=== PATIENT | male | born 1935 | race Caucasian/White ===

== ENCOUNTER 2017-11-02 19:39 | Inpatient (IN) | payer MEDICARE ==
[~2017-11-02] VITALS: Ht 165.1 cm; Wt 83.0 kg
[2017-11-02 20:17] LABS: BASOPHILS # (AUTO) 0.1 K/uL (0.0-8.0); BASOPHILS % (AUTO) 0.9 % (0.0-2.0); EOSINOPHILS # (AUTO) 0.1 K/uL (0.0-0.7); EOSINOPHILS % (AUTO) 1.5 % (0.0-7.0); HEMATOCRIT 29.5 % (36.7-47.1); HEMOGLOBIN 9.7 g/dL (12.5-16.3); LYMPHOCYTES # (AUTO) 2.1 K/uL (20.0-40.0); LYMPHOCYTES % (AUTO) 34.1 % (20.5-51.5); MEAN CORPUSCULAR HEMOGLOBIN 27.8 uug (23.8-33.4); MEAN CORPUSCULAR HGB CONC 33 g/dL (32.5-36.3); MEAN CORPUSCULAR VOLUME 84.7 fL (73.0-96.2); MONOCYTES # (AUTO) 0.5 K/uL (2.0-10.0); MONOCYTES % (AUTO) 7.5 % (0.0-11.0); NEUTROPHILS # (AUTO) 3.5 K/uL (1.8-8.9); PLATELET COUNT (AUTO) 155 K/uL (152-348); RED BLOOD CELL COUNT(AUTO) 3.49 MIL/uL (4.06-5.63); WHITE BLOOD COUNT (AUTO) 6.2 K/uL (3.6-10.2)
[2017-11-02] MEDS ORDERED: DONE5TAB7 PO (20:22)
[2017-11-02] MEDS ORDERED: MIRT15TA PO (20:22)
[2017-11-02] MEDS ORDERED: BLOO-360 IN (20:22)
[2017-11-02] MEDS ORDERED: ATOR20TA PO (20:22)
[2017-11-02] MEDS ORDERED: LOSA100T3 PO (20:22)
[2017-11-02] MEDS ORDERED: MULT-213 PO (20:22)
[2017-11-02] MEDS ORDERED: ZOLP5TAB2 PO (20:22)
[2017-11-02] MEDS ORDERED: PANT40TA2 PO (20:22)
[2017-11-02] MEDS ORDERED: TAMS0.4C34 PO (20:22)
[2017-11-02] MEDS ORDERED: ALBU2.5V13 IH (20:22)
[2017-11-02] MEDS ORDERED: GABA300C PO (20:22)
[2017-11-02] MEDS ORDERED: RISP0.253 PO (20:22)
[2017-11-02] MEDS ORDERED: LORA0.5T PO (20:22)
[2017-11-02] MEDS ORDERED: METF500T6 PO (20:22)
[2017-11-02] MEDS ORDERED: HUM10VIA3 SQ (20:22)
[2017-11-02] MEDS ORDERED: ACET-2154 PO (20:22)
[2017-11-02 20:23] LABS: CARBON DIOXIDE 28 mmol/L (21-32); CHLORIDE 104 mmol/L (98-107); CREATININE 1.6 mg/dL (0.6-1.3); GLUCOSE 128 mg/dL (74-106); UREA NITROGEN, BLOOD 32 mg/dL (7-18)
[2017-11-02 20:28] LABS: ACETAMINOPHEN < 2.0 ug/mL (10-30); ALANINE AMINOTRANSFERASE 22 U/L (16-63); ALKALINE PHOSPHATASE 91 U/L (50-136); ASPARTATE AMINOTRANSFERASE 12 U/L (15-37); BILIRUBIN,DIRECT 0.2 mg/dL (0.0-0.2); BILIRUBIN,TOTAL 0.5 mg/dL (0.2-1.0); TOTAL PROTEIN, SERUM 6.8 g/dL (6.4-8.2)
[2017-11-02 20:31] LABS: ETHANOL < 3 MG/DL (0-0)
[2017-11-02] MEDS ORDERED: MAG HYDROX/AL HYDROX/SIMETH 30 ML LIQUID UDC PO PRN (23:15)
[2017-11-02] MEDS ORDERED: ZOLPIDEM 5 MG TABLET PO PRN (23:15)
[2017-11-02] MEDS ORDERED: MAGNESIUM HYDROXIDE 30 ML LIQUID UDC PO PRN (23:15)
[2017-11-02] MEDS ORDERED: TEMAZEPAM 7.5 MG CAPSULE PO PRN (23:15)
[2017-11-02] MEDS ORDERED: ACETAMINOPHEN 650 MG SUPP.RECT RC PRN (23:15)
[2017-11-03] MEDS ORDERED: hydrALAZINE HCL 25 MG TABLET PO PRN
[2017-11-03] MEDS ORDERED: DEXTROSE 50% 50 ML DISP.SYRIN IV PRN
[2017-11-03] MEDS ORDERED: ALBUTEROL SULFATE 2.5 MG/ 0.5 ML NEBU IH PRN
[2017-11-03] MEDS: BLOOD SUGAR DIAGNOSTIC 1 EACH STRIP VI SCH ×4 (07:06→21:38)
[2017-11-03 07:30] VITALS: BP 127/45
[2017-11-03] MEDS ORDERED: BLOOD SUGAR DIAGNOSTIC 1 EACH STRIP VI SCH (07:30)
[2017-11-03] MEDS: PANTOPRAZOLE SODIUM 40 MG TABLET.DR PO SCH (08:48)
[2017-11-03] MEDS: GABAPENTIN 300 MG CAPSULE PO SCH ×2 (08:48→16:59)
[2017-11-03] MEDS: MULTIVIT, IRON, MIN NO. 8, FA TABLET PO SCH (08:50)
[2017-11-03] MEDS ORDERED: AMLODIPINE 5 MG TABLET PO SCH (09:00)
[2017-11-03] MEDS ORDERED: METFORMIN HCL 500 MG TABLET PO SCH (09:00)
[2017-11-03] MEDS: HUM INSULIN NPH/REG INSULIN HM 70/30 1000 UNITS/10 ML VIAL SQ SCH ×2 (09:44→21:37)
[2017-11-03] MEDS: DIVALPROEX SPRINKLE 125 MG CAP.SPRINK PO SCH ×2 (11:43→21:29)
[2017-11-03] MEDS: risperiDONE 0.5 MG TABLET PO SCH ×2 (11:43→21:29)
[2017-11-03] MEDS: LORAZEPAM 1 MG TABLET PO PRN (11:43)
[2017-11-03 15:43] VITALS: BP 117/35
[2017-11-03 20:00] VITALS: BP 107/43
[2017-11-03] MEDS ORDERED: ATORVASTATIN 20 MG TABLET PO SCH (21:00)
[2017-11-03] MEDS ORDERED: TAMSULOSIN HCL 0.4 MG CAP.SR.24H PO SCH (21:00)
[2017-11-03] MEDS: INSULIN REGULAR, HUMAN 300 UNIT/3 ML VIAL SQ PRN (21:00)
[2017-11-03] MEDS: TAMSULOSIN HCL 0.4 MG CAP.SR.24H PO SCH (21:30)
[2017-11-03] MEDS: TEMAZEPAM 7.5 MG CAPSULE PO PRN (23:23)
[2017-11-03 23:24] LABS: *BILIRUBIN,URIN NEGATIVE (NEGATIVE); *BLOOD, URINE 2+ (NEGATIVE); *CLARITY,URINE CLOUDY (CLEAR); *COLOR,URINE YELLOW (YELLOW); *KETONES,URINE NEGATIVE (NEGATIVE); *PROTEIN,URINE NEGATIVE (NEGATIVE); *UROBILINOGEN,URINE 0.2 E.U./dl (NORMAL); LEUKOCYTE ESTERASE ,URINE 3+ (NEGATIVE); NITRITE, URINE NEGATIVE (NEGATIVE); PH,URINE 6.5 (5.0-8.0); UGLUCOSE NEGATIVE (NEGATIVE)
[2017-11-03 23:36] LABS: BACTERIA,URINE MANY /HPF (NONE SEEN); RBC,URINE 20-50 /HPF (0-3); WBC,URINE 80-100 /HPF (0-3)
[2017-11-03 23:37] LABS: *AMPHETAMINE, URINE NEGATIVE (NEGATIVE); *BARBITURATE, URINE NEGATIVE (NEGATIVE); *CANNABINOID, URINE NEGATIVE (NEGATIVE); *COCCAINE, URINE NEGATIVE (NEGATIVE); *OPIATE, URINE NEGATIVE (NEGATIVE); *PHENCYCLIDINE SCREEN,URINE NEGATIVE (NEGATIVE); SQUAMOUS EPITHELIAL CELL,UR FEW /HPF (NONE SEEN); YEAST,URINE FEW /HPF (NONE SEEN)
[2017-11-03 23:52] LABS: *CREATININE,URINE 70.4 mg/dL (30-125)
[2017-11-04] MEDS: LORAZEPAM 1 MG TABLET PO PRN ×2 (00:07→19:38)
[2017-11-04] MEDS: TEMAZEPAM 7.5 MG CAPSULE PO PRN ×2 (00:33→22:35)
[2017-11-04] MEDS: BLOOD SUGAR DIAGNOSTIC 1 EACH STRIP VI SCH ×4 (06:44→21:16)
[2017-11-04 07:34] LABS: IRON, SERUM 19 ug/dL (50-175)
[2017-11-04 07:42] LABS: BASOPHILS # (AUTO) 0.1 K/uL (0.0-8.0); BASOPHILS % (AUTO) 0.6 % (0.0-2.0); EOSINOPHILS # (AUTO) 0.1 K/uL (0.0-0.7); EOSINOPHILS % (AUTO) 1.2 % (0.0-7.0); HEMATOCRIT 31.5 % (36.7-47.1); HEMOGLOBIN 10.3 g/dL (12.5-16.3); LYMPHOCYTES # (AUTO) 2.6 K/uL (20.0-40.0); LYMPHOCYTES % (AUTO) 31.7 % (20.5-51.5); MEAN CORPUSCULAR HEMOGLOBIN 27.7 uug (23.8-33.4); MEAN CORPUSCULAR HGB CONC 33 g/dL (32.5-36.3); MEAN CORPUSCULAR VOLUME 84.3 fL (73.0-96.2); MONOCYTES # (AUTO) 0.6 K/uL (2.0-10.0); MONOCYTES % (AUTO) 7.9 % (0.0-11.0); NEUTROPHILS # (AUTO) 4.7 K/uL (1.8-8.9); NEUTROPHILS % (AUTO) 58.6 % (38.5-71.5); PLATELET COUNT (AUTO) 148 K/uL (152-348); RED BLOOD CELL COUNT(AUTO) 3.74 MIL/uL (4.06-5.63)
[2017-11-04 07:55] LABS: WHITE BLOOD COUNT (AUTO) 8.1 K/uL (3.6-10.2)
[2017-11-04 08:10] LABS: THYROID STIMULATING HORMONE 1.668 mIU/mL (0.358-3.740)
[2017-11-04 08:14] LABS: ALANINE AMINOTRANSFERASE 20 U/L (16-63); ALKALINE PHOSPHATASE 71 U/L (50-136); ASPARTATE AMINOTRANSFERASE 12 U/L (15-37); BILIRUBIN,TOTAL 0.8 mg/dL (0.2-1.0); CARBON DIOXIDE 28 mmol/L (21-32); CHLORIDE 103 mmol/L (98-107); CREATINE KINASE, TOTAL 93 U/L (39-308); CREATININE 1.2 mg/dL (0.6-1.3); GLUCOSE 89 mg/dL (74-106); MAGNESIUM 1.6 mg/dL (1.8-2.4); PHOSPHOROUS 4.1 mg/dL (2.5-4.9); POTASSIUM 4.8 mmol/L (3.5-5.1); TOTAL PROTEIN, SERUM 7.5 g/dL (6.4-8.2); UREA NITROGEN, BLOOD 32 mg/dL (7-18)
[2017-11-04 08:32] VITALS: BP 115/54
[2017-11-04] MEDS: GABAPENTIN 300 MG CAPSULE PO SCH ×3 (09:00→16:36)
[2017-11-04] MEDS: risperiDONE 0.5 MG TABLET PO SCH ×3 (09:00→20:46)
[2017-11-04] MEDS: MULTIVIT, IRON, MIN NO. 8, FA TABLET PO SCH ×2 (09:00→10:53)
[2017-11-04] MEDS: DIVALPROEX SPRINKLE 125 MG CAP.SPRINK PO SCH ×3 (09:00→20:46)
[2017-11-04] MEDS: PANTOPRAZOLE SODIUM 40 MG TABLET.DR PO SCH ×2 (09:00→10:53)
[2017-11-04] MEDS: HUM INSULIN NPH/REG INSULIN HM 70/30 1000 UNITS/10 ML VIAL SQ SCH ×2 (09:00→21:37)
[2017-11-04 09:05] LABS: FERRITIN 159 ng/mL (26-388)
[2017-11-04] MEDS ORDERED: MAGNESIUM OXIDE 400 MG TABLET PO ONE (10:30)
[2017-11-04] MEDS: CEPHALEXIN MONOHYDRATE 500 MG CAPSULE PO SCH ×2 (10:52→22:35)
[2017-11-04] MEDS: FERROUS SULFATE 325 MG TABEC PO SCH ×2 (10:52→20:46)
[2017-11-04] MEDS: INSULIN REGULAR, HUMAN 300 UNIT/3 ML VIAL SQ PRN (16:38)
[2017-11-04 16:50] VITALS: BP 123/56
[2017-11-04] MEDS ORDERED: OLANZAPINE 10 MG VIAL IM ONE (19:45)
[2017-11-04] MEDS: TAMSULOSIN HCL 0.4 MG CAP.SR.24H PO SCH (20:45)
[2017-11-04] MEDS: DONEPEZIL 5 MG TABLET PO SCH (20:46)
[2017-11-05] MEDS: LORAZEPAM 1 MG TABLET PO PRN ×4 (03:49→16:55)
[2017-11-05] MEDS: CEPHALEXIN MONOHYDRATE 500 MG CAPSULE PO SCH ×3 (06:00→21:30)
[2017-11-05] MEDS: BLOOD SUGAR DIAGNOSTIC 1 EACH STRIP VI SCH ×4 (06:39→21:30)
[2017-11-05 07:30] VITALS: BP 111/50
[2017-11-05] MEDS: PANTOPRAZOLE SODIUM 40 MG TABLET.DR PO SCH (07:30)
[2017-11-05] MEDS: risperiDONE 0.5 MG TABLET PO SCH ×2 (08:55→21:13)
[2017-11-05] MEDS: FERROUS SULFATE 325 MG TABEC PO SCH ×2 (08:55→21:13)
[2017-11-05] MEDS: DIVALPROEX SPRINKLE 125 MG CAP.SPRINK PO SCH ×2 (08:55→21:13)
[2017-11-05] MEDS: MULTIVIT, IRON, MIN NO. 8, FA TABLET PO SCH (08:55)
[2017-11-05] MEDS: GABAPENTIN 300 MG CAPSULE PO SCH ×2 (08:55→16:55)
[2017-11-05] MEDS: HUM INSULIN NPH/REG INSULIN HM 70/30 1000 UNITS/10 ML VIAL SQ SCH ×2 (09:03→21:00)
[2017-11-05] MEDS: INSULIN REGULAR, HUMAN 300 UNIT/3 ML VIAL SQ PRN (11:48)
[2017-11-05] MEDS: ACETAMINOPHEN 325 MG TABLET PO PRN (14:13)
[2017-11-05 15:54] VITALS: BP 93/61
[2017-11-05 20:48] VITALS: BP 102/60
[2017-11-05] MEDS: DONEPEZIL 5 MG TABLET PO SCH (21:13)
[2017-11-05] MEDS: TAMSULOSIN HCL 0.4 MG CAP.SR.24H PO SCH (21:13)
[2017-11-06] MEDS: PANTOPRAZOLE SODIUM 40 MG TABLET.DR PO SCH (06:35)
[2017-11-06] MEDS: BLOOD SUGAR DIAGNOSTIC 1 EACH STRIP VI SCH ×4 (06:35→20:24)
[2017-11-06] MEDS: CEPHALEXIN MONOHYDRATE 500 MG CAPSULE PO SCH ×3 (06:35→21:01)
[2017-11-06 07:30] VITALS: BP 108/47
[2017-11-06] MEDS: HUM INSULIN NPH/REG INSULIN HM 70/30 1000 UNITS/10 ML VIAL SQ SCH ×2 (09:00→20:53)
[2017-11-06] MEDS: MULTIVIT, IRON, MIN NO. 8, FA TABLET PO SCH (09:50)
[2017-11-06] MEDS: risperiDONE 0.5 MG TABLET PO SCH ×2 (09:50→20:23)
[2017-11-06] MEDS: DIVALPROEX SPRINKLE 125 MG CAP.SPRINK PO SCH ×2 (09:50→20:23)
[2017-11-06] MEDS: GABAPENTIN 300 MG CAPSULE PO SCH ×2 (09:50→16:27)
[2017-11-06] MEDS: FERROUS SULFATE 325 MG TABEC PO SCH ×2 (09:50→20:23)
[2017-11-06 10:08] LABS: A/G RATIO 1.1 (0.7-1.7); ALBUMIN 3.6 g/dL (2.9-4.4); ALPHA-1-GLOBULIN 0.3 g/dL (0.0-0.4); GAMMA GLOBULIN 1.1 g/dL (0.4-1.8); GLOBULIN, TOTAL 3.4 g/dL (2.2-3.9); M-SPIKE Not Observed g/dL (Not Observed)
[2017-11-06] MEDS: ACETAMINOPHEN 325 MG TABLET PO PRN ×2 (11:16→16:49)
[2017-11-06] MEDS: LORAZEPAM 1 MG TABLET PO PRN ×2 (14:08→17:35)
[2017-11-06 15:37] VITALS: BP 102/49
[2017-11-06] MEDS: INSULIN REGULAR, HUMAN 300 UNIT/3 ML VIAL SQ PRN ×2 (16:30→20:52)
[2017-11-06 19:51] VITALS: BP 123/54
[2017-11-06] MEDS: DONEPEZIL 5 MG TABLET PO SCH (20:22)
[2017-11-06] MEDS: TAMSULOSIN HCL 0.4 MG CAP.SR.24H PO SCH (20:24)
[2017-11-06] MEDS: TEMAZEPAM 7.5 MG CAPSULE PO PRN (23:26)
[2017-11-07] MEDS: CEPHALEXIN MONOHYDRATE 500 MG CAPSULE PO SCH ×3 (06:00→21:13)
[2017-11-07] MEDS: PANTOPRAZOLE SODIUM 40 MG TABLET.DR PO SCH (07:23)
[2017-11-07] MEDS: BLOOD SUGAR DIAGNOSTIC 1 EACH STRIP VI SCH ×4 (07:23→21:11)
[2017-11-07] MEDS: HUM INSULIN NPH/REG INSULIN HM 70/30 1000 UNITS/10 ML VIAL SQ SCH ×2 (09:00→21:11)
[2017-11-07] MEDS: GABAPENTIN 300 MG CAPSULE PO SCH ×2 (09:36→17:31)
[2017-11-07] MEDS: FERROUS SULFATE 325 MG TABEC PO SCH ×2 (09:37→21:11)
[2017-11-07] MEDS: DIVALPROEX SPRINKLE 125 MG CAP.SPRINK PO SCH ×2 (09:37→21:11)
[2017-11-07] MEDS: risperiDONE 0.5 MG TABLET PO SCH ×2 (09:37→21:11)
[2017-11-07] MEDS: MULTIVIT, IRON, MIN NO. 8, FA TABLET PO SCH (09:37)
[2017-11-07] MEDS: LORAZEPAM 1 MG TABLET PO PRN ×2 (10:15→19:48)
[2017-11-07] MEDS: INSULIN REGULAR, HUMAN 300 UNIT/3 ML VIAL SQ PRN ×2 (12:56→21:09)
[2017-11-07 14:47] VITALS: BP 133/53
[2017-11-07 20:00] VITALS: BP 112/50
[2017-11-07] MEDS: DONEPEZIL 5 MG TABLET PO SCH (21:11)
[2017-11-07] MEDS: TAMSULOSIN HCL 0.4 MG CAP.SR.24H PO SCH (21:13)
[2017-11-08] MEDS: CEPHALEXIN MONOHYDRATE 500 MG CAPSULE PO SCH ×3 (06:35→21:05)
[2017-11-08] MEDS: PANTOPRAZOLE SODIUM 40 MG TABLET.DR PO SCH (06:35)
[2017-11-08] MEDS: BLOOD SUGAR DIAGNOSTIC 1 EACH STRIP VI SCH ×4 (06:50→20:30)
[2017-11-08 07:30] VITALS: BP 107/56
[2017-11-08] MEDS: DIVALPROEX SPRINKLE 125 MG CAP.SPRINK PO SCH ×3 (09:00→20:00)
[2017-11-08] MEDS: GABAPENTIN 300 MG CAPSULE PO SCH ×3 (09:00→16:14)
[2017-11-08] MEDS: MULTIVIT, IRON, MIN NO. 8, FA TABLET PO SCH ×2 (09:00→09:21)
[2017-11-08] MEDS: HUM INSULIN NPH/REG INSULIN HM 70/30 1000 UNITS/10 ML VIAL SQ SCH ×2 (09:00→20:36)
[2017-11-08] MEDS: FERROUS SULFATE 325 MG TABEC PO SCH ×3 (09:00→20:00)
[2017-11-08] MEDS: risperiDONE 0.5 MG TABLET PO SCH ×3 (09:00→20:00)
[2017-11-08] MEDS: INSULIN REGULAR, HUMAN 300 UNIT/3 ML VIAL SQ PRN ×4 (09:22→20:34)
[2017-11-08] MEDS: Z GUARD REMEDY PASTE 57 GM TUBE TOP SCH ×2 (13:15→20:08)
[2017-11-08] MEDS: ACETAMINOPHEN 325 MG TABLET PO PRN (13:19)
[2017-11-08 17:11] VITALS: BP 109/48
[2017-11-08] MEDS: TAMSULOSIN HCL 0.4 MG CAP.SR.24H PO SCH (20:01)
[2017-11-08] MEDS: DONEPEZIL 5 MG TABLET PO SCH (20:43)
[2017-11-09] MEDS: CEPHALEXIN MONOHYDRATE 500 MG CAPSULE PO SCH ×3 (05:37→22:18)
[2017-11-09] MEDS: BLOOD SUGAR DIAGNOSTIC 1 EACH STRIP VI SCH ×4 (06:23→21:16)
[2017-11-09] MEDS: PANTOPRAZOLE SODIUM 40 MG TABLET.DR PO SCH (06:31)
[2017-11-09 07:30] VITALS: BP 123/57
[2017-11-09] MEDS: INSULIN REGULAR, HUMAN 300 UNIT/3 ML VIAL SQ PRN ×3 (08:00→21:34)
[2017-11-09] MEDS: MULTIVIT, IRON, MIN NO. 8, FA TABLET PO SCH (08:02)
[2017-11-09] MEDS: FERROUS SULFATE 325 MG TABEC PO SCH ×2 (08:02→21:00)
[2017-11-09] MEDS: LORAZEPAM 1 MG TABLET PO PRN ×2 (08:02→13:04)
[2017-11-09] MEDS: DIVALPROEX SPRINKLE 125 MG CAP.SPRINK PO SCH ×2 (08:02→21:00)
[2017-11-09] MEDS: risperiDONE 0.5 MG TABLET PO SCH ×2 (08:02→21:00)
[2017-11-09] MEDS: GABAPENTIN 300 MG CAPSULE PO SCH ×2 (08:02→17:36)
[2017-11-09] MEDS: Z GUARD REMEDY PASTE 57 GM TUBE TOP SCH ×2 (08:03→21:45)
[2017-11-09] MEDS: HUM INSULIN NPH/REG INSULIN HM 70/30 1000 UNITS/10 ML VIAL SQ SCH ×2 (08:12→21:35)
[2017-11-09 16:21] VITALS: BP 100/46
[2017-11-09 20:00] VITALS: BP 122/88
[2017-11-09] MEDS: TAMSULOSIN HCL 0.4 MG CAP.SR.24H PO SCH (21:00)
[2017-11-09] MEDS: DONEPEZIL 5 MG TABLET PO SCH (21:00)
[2017-11-10] MEDS: CEPHALEXIN MONOHYDRATE 500 MG CAPSULE PO SCH (06:01)
[2017-11-10] MEDS: BLOOD SUGAR DIAGNOSTIC 1 EACH STRIP VI SCH ×4 (06:12→20:56)
[2017-11-10] MEDS: PANTOPRAZOLE SODIUM 40 MG TABLET.DR PO SCH (06:42)
[2017-11-10 07:30] VITALS: BP 133/55
[2017-11-10] MEDS: FERROUS SULFATE 325 MG TABEC PO SCH ×2 (09:17→20:34)
[2017-11-10] MEDS: GABAPENTIN 300 MG CAPSULE PO SCH ×2 (09:18→17:11)
[2017-11-10] MEDS: DIVALPROEX SPRINKLE 125 MG CAP.SPRINK PO SCH ×2 (09:18→20:33)
[2017-11-10] MEDS: risperiDONE 0.5 MG TABLET PO SCH ×2 (09:18→17:11)
[2017-11-10] MEDS: MULTIVIT, IRON, MIN NO. 8, FA TABLET PO SCH (09:18)
[2017-11-10] MEDS: Z GUARD REMEDY PASTE 57 GM TUBE TOP SCH ×2 (09:20→20:56)
[2017-11-10] MEDS: HUM INSULIN NPH/REG INSULIN HM 70/30 1000 UNITS/10 ML VIAL SQ SCH ×2 (09:24→21:00)
[2017-11-10] MEDS: INSULIN REGULAR, HUMAN 300 UNIT/3 ML VIAL SQ PRN ×3 (12:03→20:59)
[2017-11-10] MEDS: LORAZEPAM 1 MG TABLET PO PRN ×2 (12:35→20:33)
[2017-11-10 15:49] VITALS: BP 113/58
[2017-11-10 20:25] VITALS: BP 126/62
[2017-11-10] MEDS: DONEPEZIL 5 MG TABLET PO SCH (20:33)
[2017-11-10] MEDS: TAMSULOSIN HCL 0.4 MG CAP.SR.24H PO SCH (20:34)
[2017-11-10] MEDS ORDERED: risperiDONE 0.5 MG TABLET PO SCH (21:00)
[2017-11-11] MEDS: BLOOD SUGAR DIAGNOSTIC 1 EACH STRIP VI SCH ×4 (06:33→20:15)
[2017-11-11 07:30] VITALS: BP 89/43
[2017-11-11] MEDS: PANTOPRAZOLE SODIUM 40 MG TABLET.DR PO SCH (07:30)
[2017-11-11] MEDS: DIVALPROEX SPRINKLE 125 MG CAP.SPRINK PO SCH ×2 (09:01→20:07)
[2017-11-11] MEDS: MULTIVIT, IRON, MIN NO. 8, FA TABLET PO SCH (09:01)
[2017-11-11] MEDS: risperiDONE 0.5 MG TABLET PO SCH ×3 (09:01→20:07)
[2017-11-11] MEDS: GABAPENTIN 300 MG CAPSULE PO SCH ×2 (09:01→15:38)
[2017-11-11] MEDS: FERROUS SULFATE 325 MG TABEC PO SCH ×2 (09:01→20:07)
[2017-11-11] MEDS: HUM INSULIN NPH/REG INSULIN HM 70/30 1000 UNITS/10 ML VIAL SQ SCH ×2 (09:04→21:11)
[2017-11-11] MEDS: Z GUARD REMEDY PASTE 57 GM TUBE TOP SCH ×2 (09:12→21:09)
[2017-11-11 10:26] VITALS: BP 100/60
[2017-11-11] MEDS: LORAZEPAM 1 MG TABLET PO PRN ×2 (11:03→15:39)
[2017-11-11] MEDS: INSULIN REGULAR, HUMAN 300 UNIT/3 ML VIAL SQ PRN ×2 (12:01→17:06)
[2017-11-11 15:48] VITALS: BP 140/95
[2017-11-11 20:00] VITALS: BP 105/55
[2017-11-11] MEDS: TAMSULOSIN HCL 0.4 MG CAP.SR.24H PO SCH (20:06)
[2017-11-11] MEDS: DONEPEZIL 5 MG TABLET PO SCH (20:07)
[2017-11-12] MEDS: BLOOD SUGAR DIAGNOSTIC 1 EACH STRIP VI SCH ×4 (06:33→20:28)
[2017-11-12] MEDS: PANTOPRAZOLE SODIUM 40 MG TABLET.DR PO SCH (06:33)
[2017-11-12 07:30] VITALS: BP 105/47
[2017-11-12 08:09] LABS: CARBON DIOXIDE 30 mmol/L (21-32); CHLORIDE 105 mmol/L (98-107); CREATININE 1.3 mg/dL (0.6-1.3); GLUCOSE 172 mg/dL (74-106); POTASSIUM 4.2 mmol/L (3.5-5.1); UREA NITROGEN, BLOOD 30 mg/dL (7-18)
[2017-11-12 08:42] LABS: BASOPHILS # (AUTO) 0.1 K/uL (0.0-8.0); BASOPHILS % (AUTO) 0.8 % (0.0-2.0); EOSINOPHILS # (AUTO) 0.2 K/uL (0.0-0.7); EOSINOPHILS % (AUTO) 2.8 % (0.0-7.0); HEMOGLOBIN 10.6 g/dL (12.5-16.3); LYMPHOCYTES # (AUTO) 2.1 K/uL (20.0-40.0); LYMPHOCYTES % (AUTO) 28.8 % (20.5-51.5); MEAN CORPUSCULAR HEMOGLOBIN 27.8 uug (23.8-33.4); MEAN CORPUSCULAR HGB CONC 33 g/dL (32.5-36.3); MONOCYTES # (AUTO) 0.6 K/uL (2.0-10.0); NEUTROPHILS # (AUTO) 4.4 K/uL (1.8-8.9); NEUTROPHILS % (AUTO) 59.6 % (38.5-71.5); RED BLOOD CELL COUNT(AUTO) 3.81 MIL/uL (4.06-5.63); WHITE BLOOD COUNT (AUTO) 7.3 K/uL (3.6-10.2)
[2017-11-12 08:43] LABS: PLATELET COUNT (AUTO) 193 K/uL (152-348)
[2017-11-12] MEDS: GABAPENTIN 300 MG CAPSULE PO SCH ×2 (08:43→16:06)
[2017-11-12] MEDS: MULTIVIT, IRON, MIN NO. 8, FA TABLET PO SCH (08:44)
[2017-11-12] MEDS: risperiDONE 0.5 MG TABLET PO SCH ×3 (08:44→20:27)
[2017-11-12] MEDS: DIVALPROEX SPRINKLE 125 MG CAP.SPRINK PO SCH ×2 (08:44→20:27)
[2017-11-12] MEDS: FERROUS SULFATE 325 MG TABEC PO SCH ×2 (08:44→20:27)
[2017-11-12] MEDS: Z GUARD REMEDY PASTE 57 GM TUBE TOP SCH ×2 (09:07→21:25)
[2017-11-12] MEDS: HUM INSULIN NPH/REG INSULIN HM 70/30 1000 UNITS/10 ML VIAL SQ SCH ×2 (09:10→21:21)
[2017-11-12] MEDS: LORAZEPAM 1 MG TABLET PO PRN ×2 (12:02→19:36)
[2017-11-12 13:59] LABS: *OCCULT BLOOD STOOL NEGATIVE (NEGATIVE)
[2017-11-12 15:27] VITALS: BP 148/63
[2017-11-12] MEDS: INSULIN REGULAR, HUMAN 300 UNIT/3 ML VIAL SQ PRN ×2 (16:36→21:22)
[2017-11-12 20:00] VITALS: BP 126/54
[2017-11-12] MEDS: TAMSULOSIN HCL 0.4 MG CAP.SR.24H PO SCH (20:27)
[2017-11-12] MEDS: DONEPEZIL 5 MG TABLET PO SCH (20:27)
[2017-11-12] MEDS: TEMAZEPAM 7.5 MG CAPSULE PO PRN (21:55)
[2017-11-13] MEDS: PANTOPRAZOLE SODIUM 40 MG TABLET.DR PO SCH (06:41)
[2017-11-13] MEDS: BLOOD SUGAR DIAGNOSTIC 1 EACH STRIP VI SCH ×4 (06:41→16:35)
[2017-11-13 07:30] VITALS: BP 97/41
[2017-11-13] MEDS: DIVALPROEX SPRINKLE 125 MG CAP.SPRINK PO SCH (08:25)
[2017-11-13] MEDS: risperiDONE 0.5 MG TABLET PO SCH ×2 (08:25→16:20)
[2017-11-13] MEDS: GABAPENTIN 300 MG CAPSULE PO SCH ×2 (08:25→16:20)
[2017-11-13] MEDS: FERROUS SULFATE 325 MG TABEC PO SCH (08:25)
[2017-11-13] MEDS: MULTIVIT, IRON, MIN NO. 8, FA TABLET PO SCH (08:25)
[2017-11-13] MEDS: Z GUARD REMEDY PASTE 57 GM TUBE TOP SCH (08:26)
[2017-11-13] MEDS: ACETAMINOPHEN 325 MG TABLET PO PRN (08:26)
[2017-11-13] MEDS: HUM INSULIN NPH/REG INSULIN HM 70/30 1000 UNITS/10 ML VIAL SQ SCH (09:30)
[2017-11-13] MEDS: INSULIN REGULAR, HUMAN 300 UNIT/3 ML VIAL SQ PRN ×2 (11:53→16:30)
[2017-11-13] MEDS: LORAZEPAM 1 MG TABLET PO PRN (13:10)
[2017-11-13 15:58] VITALS: BP 110/51
== END 2017-11-13 18:45 | DRG 885 ==
LOC: ER 19:50 → GPS 22:17
PROVIDERS: ADMIT Psychiatry & Neurology Psychiatry; ATTEND Internal Medicine
DX: F39 Unspecified mood [affective] disorder (principal); N17.0 Acute kidney failure with tubular necrosis; B95.1 Streptococcus, group B, as the cause of diseases classified elsewhere; E11.65 Type 2 diabetes mellitus with hyperglycemia; F03.91 Unspecified dementia, unspecified severity, with behavioral disturbance; D69.6 Thrombocytopenia, unspecified; E83.42 Hypomagnesemia; N39.0 Urinary tract infection, site not specified; N28.1 Cyst of kidney, acquired; R13.10 Dysphagia, unspecified; Z91.14 Patient's other noncompliance with medication regimen; E66.9 Obesity, unspecified; J45.909 Unspecified asthma, uncomplicated; K21.9 Gastro-esophageal reflux disease without esophagitis; N40.0 Benign prostatic hyperplasia without lower urinary tract symptoms; Z79.4 Long term (current) use of insulin; Z79.899 Other long term (current) drug therapy; Z68.30 Body mass index [BMI] 30.0-30.9, adult; Z71.3 Dietary counseling and surveillance; D63.8 Anemia in other chronic diseases classified elsewhere
CPT/HCPCS: 36415; 71045; 76770; 80307; 83550; 83735; 83970; 84100; 84155; 84156; 84165; 84300; 84443; 85025; 87077; 87086; 93005; 97110; 97116; 97530; A4663; G0480; G0480-TC; J1815